=== PATIENT | female | born 1965 | race African-American/Black ===

== ENCOUNTER 2016-09-11 04:54 | Inpatient (IN) | payer OTHER ==
[~2016-09-11] VITALS: Ht 170.2 cm; Wt 116.1 kg
[~2016-09-11 04:54] MED LIST: ASPI-867 PO; ATOR10TA69 PO; Calcium Acetate PO; DEXTL PO; DOCU-138 PO; HYDR-4134 PO; LORA10TA7 PO; NEBI5TAB3 PO; NITR0.4T SL; Nifedipine PO; OMEP20TA80 PO
[2016-09-11] MEDS ORDERED: ONDANSETRON HCL 4MG/2ML VIAL IV STA (06:18)
[2016-09-11] MEDS ORDERED: SODIUM CHLORIDE 0.9% 500 ML IV ONE (06:18)
[2016-09-11] MEDS ORDERED: HYDRALAZINE 20MG/ML VIAL IV ONE (06:30)
[2016-09-11] MEDS ORDERED: TRAMADOL 50MG TABLET PO ONE (06:30)
[2016-09-11 07:22] LABS: INR 1.1; PROTHROMBIN TIME 11.7 sec
[2016-09-11 07:23] LABS: BASOPHILS % 0.8 % (0.0-2.0); EOSINOPHILS % 1.9 % (0.0-5.0); HEMATOCRIT. 29.6 % (36.0-48.0); HEMOGLOBIN. 9.5 g/dL (12.0-16.0); LYMPHOCYTES % 17.5 % (20.0-50.0); MEAN CORPUSCULAR HEMOGLOBIN 27.5 pg (28.0-32.0); MEAN CORPUSCULAR HGB CONC 32.2 g/dL (31.0-37.0); MEAN CORPUSCULAR VOLUME 85.3 fL (81.0-99.0); MEAN PLATELET VOLUME 7.8 fl (7.4-10.4); MONOCYTES % 5.2 % (2.0-8.0); NEUTROPHILS % 74.6 % (40.0-76.0); PLATELET 250 x1000/uL (130-400); RED BLOOD CELL COUNT 3.47 mill/uL (4.2-5.4); RED CELL DISTRIBUTION WIDTH 14.7 % (11.6-14.6); WHITE BLOOD COUNT 9.9 x1000/uL (4.5-11.0)
[2016-09-11 07:35] LABS: ALANINE AMINOTRANSFERASE 12 IU/L (13-61); ALBUMIN 3.1 g/dL (3.4-5.0); ANION GAP 14; CALCIUM 9.1 mg/dL (8.5-10.1); CARBON DIOXIDE 29 mEq/L (21-32); CHLORIDE 102 mEq/L (98-107); INDEX HEMOLYSI 1 (1-3); INDEX ICTERIC 1 (1-4); INDEX LIPEMIC 1 (1-3); LIPASE 114 IU/L (73-393); UREA NITROGEN BLOOD 34 mg/dL (7-21); eGFR 5 mL/min (>60)
[2016-09-11 07:37] LABS: TROPONIN I 0.45 ng/mL (0.00-0.04)
[2016-09-11] MEDS ORDERED: PIPERACILLIN/TAZ 3.375G PREMIX 50 ML IV ONE (07:45)
[2016-09-11 08:22] LABS: GLUCOSE URINE NEGATIVE (NEGATIVE); KETONES URINE NEGATIVE (NEGATIVE); LEUKOCYTE ESTERASE URINE NEGATIVE (NEGATIVE); NITRITE URINE NEGATIVE (NEGATIVE); OCCULT BLOOD URINE 2+ (NEGATIVE); PH URINE 7.5 (4.5-8.0); PROTEIN URINE 4+ (NEGATIVE); SPECIFIC GRAVITY URINE 1.018 (1.005-1.030); UROBILINOGEN URINE 0.2 E.U./dL (0.2-1.0)
[2016-09-11 08:23] LABS: CLARITY URINE CLEAR (CLEAR); COLOR URINE YELLOW (YELLOW)
[2016-09-11 08:36] LABS: BACTERIA URINE TRACE; SQUAMOUS EPITHELIAL CELL URINE 1+ /lpf (RARE/1+)
[2016-09-11] MEDS ORDERED: ASPIRIN 81MG TABLET PO ONE (08:45)
[2016-09-11] MEDS ORDERED: CLONIDINE 0.2MG TABLET PO ONE (12:00)
[2016-09-11 13:30] VITALS: BP 175/103
[2016-09-11] MEDS ORDERED: NIFEDIPINE XL 60MG TAB PO SCH (15:15)
[2016-09-11] MEDS: NEBIVOLOL HCL 5 MG TABLET PO SCH ×2 (15:15→21:00)
[2016-09-11 16:00] VITALS: BP 164/81
[2016-09-11] MEDS: NIFEDIPINE XL 60MG TAB PO SCH ×2 (16:02→21:00)
[2016-09-11] MEDS ORDERED: ONDANSETRON HCL 4MG/2ML VIAL IV PRN (16:30)
[2016-09-11] MEDS ORDERED: ACETAMINOPHEN 325MG TABLET PO PRN (16:30)
[2016-09-11] MEDS: SODIUM CHLORIDE 0.9% 1,000 ML IV SCH (16:34)
[2016-09-11] MEDS ORDERED: GUAIFENESIN PO PRN (18:00)
[2016-09-11] MEDS ORDERED: CALCIUM ACETATE PO SCH (18:10)
[2016-09-11] MEDS ORDERED: GUAIFENESIN 200MG/10ML SUGAR FREE UDC PO PRN (18:30)
[2016-09-11 20:00] VITALS: BP 155/102
[2016-09-11] MEDS ORDERED: ATORVASTATIN CALCIUM 10MG TABLET PO SCH (21:00)
[2016-09-11] MEDS: ATORVASTATIN CALCIUM 10MG TABLET PO SCH (21:07)
[2016-09-11] MEDS: HYDRALAZINE HCL 50MG TABLET PO SCH (21:07)
[2016-09-11] MEDS ORDERED: HYDRALAZINE HCL 25MG TABLET PO SCH (22:00)
[2016-09-12] VITALS: BP 165/88
[2016-09-12] MEDS ORDERED: PIPERACILLIN/TAZ 3.375G PREMIX 50 ML IV SCH (00:30)
[2016-09-12] MEDS: PIPERACILLIN/TAZ 2.25G PREMIX 50 ML IV SCH ×4 (02:08→20:41)
[2016-09-12] MEDS: SODIUM CHLORIDE 0.9% 1,000 ML IV SCH (02:08)
[2016-09-12 04:00] VITALS: BP 160/86
[2016-09-12] MEDS: HYDRALAZINE HCL 50MG TABLET PO SCH (05:44)
[2016-09-12 06:21] LABS: BASOPHILS % 1.1 % (0.0-2.0); EOSINOPHILS % 2.3 % (0.0-5.0); HEMATOCRIT. 26.8 % (36.0-48.0); HEMOGLOBIN. 8.6 g/dL (12.0-16.0); LYMPHOCYTES % 30.7 % (20.0-50.0); MEAN CORPUSCULAR HEMOGLOBIN 27.9 pg (28.0-32.0); MEAN CORPUSCULAR HGB CONC 32.2 g/dL (31.0-37.0); MEAN CORPUSCULAR VOLUME 86.6 fL (81.0-99.0); MEAN PLATELET VOLUME 8.1 fl (7.4-10.4); MONOCYTES % 5.9 % (2.0-8.0); PLATELET 221 x1000/uL (130-400); RED CELL DISTRIBUTION WIDTH 14.9 % (11.6-14.6); WHITE BLOOD COUNT 8.5 x1000/uL (4.5-11.0)
[2016-09-12 07:03] LABS: CALCIUM 8.6 mg/dL (8.5-10.1)
[2016-09-12 08:00] VITALS: BP 203/115
[2016-09-12] MEDS: PANTOPRAZOLE 40MG DR TABLET PO SCH (08:19)
[2016-09-12] MEDS: CALCIUM ACETATE 667MG CAPSULE PO SCH ×2 (08:19→14:19)
[2016-09-12] MEDS ORDERED: NEBIVOLOL HCL 5 MG TABLET PO SCH (09:00)
[2016-09-12] MEDS: NEBIVOLOL HCL 5 MG TABLET PO SCH ×2 (09:00→20:41)
[2016-09-12] MEDS ORDERED: ASPIRIN 325MG EC TABLET PO SCH (09:00)
[2016-09-12] MEDS ORDERED: MEDICATION NOT ON FORMULARY EA (Omeprazole 1 TAB) PO SCH (09:00)
[2016-09-12] MEDS: ENOXAPARIN 40MG/0.4ML SYR SUBCUT SCH (09:06)
[2016-09-12] MEDS: NIFEDIPINE XL 60MG TAB PO SCH ×2 (09:06→20:39)
[2016-09-12] MEDS: LORATADINE 10MG TABLET PO SCH (09:06)
[2016-09-12 12:00] VITALS: BP 194/106
[2016-09-12] MEDS: CLONIDINE 0.2MG TABLET PO SCH ×2 (14:18→22:13)
[2016-09-12] MEDS: ISOSORB DINIT/HYDRALAZINE HCL 20/37.5MG TABLET PO SCH (14:19)
[2016-09-12 16:00] VITALS: BP 184/86
[2016-09-12 20:00] VITALS: BP 114/70
[2016-09-12] MEDS: ATORVASTATIN CALCIUM 10MG TABLET PO SCH (20:42)
[2016-09-12] MEDS: EPOETIN ALFA 10000UNITS/ML VIAL SUBCUT SCH (20:42)
[2016-09-13] VITALS: BP 148/96
[2016-09-13] MEDS: PIPERACILLIN/TAZ 2.25G PREMIX 50 ML IV SCH ×4 (02:52→20:43)
[2016-09-13 04:00] VITALS: BP 181/99
[2016-09-13] MEDS: CLONIDINE 0.2MG TABLET PO SCH ×3 (05:18→20:44)
[2016-09-13 06:25] LABS: BASOPHILS % 0.9 % (0.0-2.0); EOSINOPHILS % 2.2 % (0.0-5.0); HEMATOCRIT. 27.5 % (36.0-48.0); HEMOGLOBIN. 8.9 g/dL (12.0-16.0); LYMPHOCYTES % 29.8 % (20.0-50.0); MEAN CORPUSCULAR HEMOGLOBIN 27.6 pg (28.0-32.0); MEAN CORPUSCULAR HGB CONC 32.3 g/dL (31.0-37.0); MEAN CORPUSCULAR VOLUME 85.7 fL (81.0-99.0); MEAN PLATELET VOLUME 7.6 fl (7.4-10.4); MONOCYTES % 5.6 % (2.0-8.0); NEUTROPHILS % 61.5 % (40.0-76.0); PLATELET 211 x1000/uL (130-400); RED BLOOD CELL COUNT 3.22 mill/uL (4.2-5.4); RED CELL DISTRIBUTION WIDTH 14.7 % (11.6-14.6); WHITE BLOOD COUNT 8.3 x1000/uL (4.5-11.0)
[2016-09-13 06:43] LABS: CALCIUM 8.5 mg/dL (8.5-10.1)
[2016-09-13 08:00] VITALS: BP 139/85
[2016-09-13] MEDS: ENOXAPARIN 40MG/0.4ML SYR SUBCUT SCH (08:13)
[2016-09-13] MEDS: PANTOPRAZOLE 40MG DR TABLET PO SCH (08:13)
[2016-09-13] MEDS: LORATADINE 10MG TABLET PO SCH (08:13)
[2016-09-13] MEDS: NIFEDIPINE XL 60MG TAB PO SCH ×2 (08:14→20:43)
[2016-09-13] MEDS: ASPIRIN 81MG TABLET PO SCH (08:14)
[2016-09-13] MEDS: NEBIVOLOL HCL 5 MG TABLET PO SCH (09:00)
[2016-09-13] MEDS: DOCUSATE SODIUM 100MG CAPSULE PO PRN (09:17)
[2016-09-13] MEDS: CALCIUM ACETATE 667MG CAPSULE PO SCH ×4 (09:39→17:19)
[2016-09-13] MEDS: ISOSORB DINIT/HYDRALAZINE HCL 20/37.5MG TABLET PO SCH ×4 (09:39→17:20)
[2016-09-13 12:00] VITALS: BP 118/77
[2016-09-13 16:00] VITALS: BP 123/79
[2016-09-13 20:00] VITALS: BP 121/79
[2016-09-13] MEDS: ATORVASTATIN CALCIUM 10MG TABLET PO SCH (20:43)
[2016-09-14] VITALS: BP_SYST 121; BP_SYST 135; BP_DIAS 79; BP_DIAS 86
[2016-09-14] MEDS: PIPERACILLIN/TAZ 2.25G PREMIX 50 ML IV SCH ×4 (01:33→20:00)
[2016-09-14 04:00] VITALS: BP 155/84
[2016-09-14] MEDS: CLONIDINE 0.2MG TABLET PO SCH (05:48)
[2016-09-14 06:28] LABS: CALCIUM 8.6 mg/dL (8.5-10.1)
[2016-09-14 06:36] LABS: BASOPHILS % 0.9 % (0.0-2.0); EOSINOPHILS % 1.8 % (0.0-5.0); HEMATOCRIT. 27.3 % (36.0-48.0); HEMOGLOBIN. 8.8 g/dL (12.0-16.0); LYMPHOCYTES % 28.3 % (20.0-50.0); MEAN CORPUSCULAR HEMOGLOBIN 27.6 pg (28.0-32.0); MEAN CORPUSCULAR HGB CONC 32.4 g/dL (31.0-37.0); MEAN CORPUSCULAR VOLUME 85.3 fL (81.0-99.0); MEAN PLATELET VOLUME 7.9 fl (7.4-10.4); MONOCYTES % 5.4 % (2.0-8.0); NEUTROPHILS % 63.6 % (40.0-76.0); PLATELET 203 x1000/uL (130-400); RED BLOOD CELL COUNT 3.19 mill/uL (4.2-5.4); WHITE BLOOD COUNT 8.2 x1000/uL (4.5-11.0)
[2016-09-14 08:00] VITALS: BP 162/86
[2016-09-14] MEDS: ENOXAPARIN 40MG/0.4ML SYR SUBCUT SCH (08:17)
[2016-09-14] MEDS: CALCIUM ACETATE 667MG CAPSULE PO SCH ×3 (08:17→18:04)
[2016-09-14] MEDS: LORATADINE 10MG TABLET PO SCH (08:17)
[2016-09-14] MEDS: ASPIRIN 81MG TABLET PO SCH (08:17)
[2016-09-14] MEDS: DOCUSATE SODIUM 100MG CAPSULE PO PRN (08:17)
[2016-09-14] MEDS: NIFEDIPINE XL 60MG TAB PO SCH ×2 (08:18→21:42)
[2016-09-14] MEDS: ISOSORB DINIT/HYDRALAZINE HCL 20/37.5MG TABLET PO SCH ×3 (08:18→17:00)
[2016-09-14] MEDS ORDERED: FAMOTIDINE 20MG TABLET PO SCH (09:00)
[2016-09-14 12:00] VITALS: BP 163/106
[2016-09-14 12:41] VITALS: BP_SYST 129; BP_SYST 135; BP_DIAS 84; BP_DIAS 88
[2016-09-14 16:00] VITALS: BP 129/88
[2016-09-14] MEDS ORDERED: CLONIDINE 0.1MG TABLET PO SCH (21:00)
[2016-09-14] MEDS ORDERED: MINOXIDIL 2.5MG TABLET PO SCH (21:00)
[2016-09-14] MEDS: ATORVASTATIN CALCIUM 10MG TABLET PO SCH (21:41)
[2016-09-14] MEDS: EPOETIN ALFA 10000UNITS/ML VIAL SUBCUT SCH (21:42)
== END 2016-09-14 22:05 | disposition home or self-care (01) | DRG 720 ==
LOC: ER 05:25 → 7WST 13:10
PROVIDERS: ADMIT Internal Medicine; ATTEND Internal Medicine
PROC: 5A1D60Z (ICD-10-PCS; principal; 2016-09-12)
DX: A41.9 Sepsis, unspecified organism (principal); I21.4 Non-ST elevation (NSTEMI) myocardial infarction; I13.2 Hypertensive heart and chronic kidney disease with heart failure and with stage 5 chronic kidney disease, or end stage renal disease; N17.9 Acute kidney failure, unspecified; N18.6 End stage renal disease; D64.9 Anemia, unspecified; N39.0 Urinary tract infection, site not specified; I25.10 Atherosclerotic heart disease of native coronary artery without angina pectoris; F10.20 Alcohol dependence, uncomplicated; K57.90 Diverticulosis of intestine, part unspecified, without perforation or abscess without bleeding; I50.30 Unspecified diastolic (congestive) heart failure; J44.9 Chronic obstructive pulmonary disease, unspecified; N13.6 Pyonephrosis; E78.5 Hyperlipidemia, unspecified; F17.210 Nicotine dependence, cigarettes, uncomplicated; Z82.49 Family history of ischemic heart disease and other diseases of the circulatory system; Z99.2 Dependence on renal dialysis; Z88.8 Allergy status to other drugs, medicaments and biological substances; Z90.49 Acquired absence of other specified parts of digestive tract
CPT/HCPCS: 36415; 71010; 74176; 80048; 80053; 81001; 83605; 83690; 84484; 85025; 85610; 85730; 87040; 87086; 93005; 96365; 96375; 97162; 97166; 99291; J0360; J0885; J1650; J2405; J2543; J7030; J7040; J7050

== ENCOUNTER 2017-04-24 07:38 | Inpatient (IN) | payer MEDICARE, OTHER ==
[~2017-04-24] VITALS: Ht 170.2 cm; Wt 113.4 kg
[~2017-04-24 07:38] MED LIST changes: +OMEP20TA2 PO; -OMEP20TA80 PO
[2017-04-24] MEDS ORDERED: HYDRALAZINE 20MG/ML VIAL IV ONE ×2 (09:00→11:15)
[2017-04-24 09:12] LABS: BASOPHILS % 1.3 % (0.0-2.0); EOSINOPHILS % 1.7 % (0.0-5.0); HEMATOCRIT. 34.6 % (36.0-48.0); HEMOGLOBIN. 11.5 g/dL (12.0-16.0); LYMPHOCYTES % 17.1 % (20.0-50.0); MEAN CORPUSCULAR HEMOGLOBIN 29.8 pg (28.0-32.0); MEAN PLATELET VOLUME 7.5 fl (7.4-10.4); NEUTROPHILS % 75.9 % (40.0-76.0); PLATELET 165 x1000/uL (130-400); RED BLOOD CELL COUNT 3.84 mill/uL (4.2-5.4); RED CELL DISTRIBUTION WIDTH 15.9 % (11.6-14.6)
[2017-04-24 09:34] LABS: CARBON DIOXIDE 31 mEq/L (21-32); CHLORIDE 103 mEq/L (98-107)
[2017-04-24 09:36] LABS: INR 1.1; PARTIAL THROMBOPLASTIN TIME 23.7 sec (23.4-31.0); PROTHROMBIN TIME 11.5 sec (9.4-11.6); TROPONIN I 0.49 ng/mL (0.00-0.04)
[2017-04-24] MEDS ORDERED: KETOROLAC 30MG/ML VIAL IV ONE ×2 (10:15→13:00)
[2017-04-24] MEDS ORDERED: CLONIDINE 0.2MG TABLET PO ONE (12:15)
[2017-04-24] MEDS ORDERED: CLONIDINE 0.2MG TABLET PO SCH (14:00)
[2017-04-24] MEDS: HYDRALAZINE HCL 100MG TABLET PO SCH ×2 (14:00→23:40)
[2017-04-24] MEDS ORDERED: NEBIVOLOL HCL 5 MG TABLET PO SCH (14:00)
[2017-04-24] MEDS ORDERED: ACETAMINOPHEN 325MG TABLET PO PRN (15:15)
[2017-04-24] MEDS ORDERED: ONDANSETRON HCL 4MG/2ML VIAL IV PRN (15:15)
[2017-04-24 15:30] VITALS: BP 136/76
[2017-04-24] MEDS: NIFEDIPINE XL 60MG TAB PO SCH ×2 (15:58→21:19)
[2017-04-24 18:23] VITALS: BP 202/93
[2017-04-24 20:00] VITALS: BP 182/78
[2017-04-24] MEDS: CLONIDINE 0.2MG TABLET PO SCH (22:00)
[2017-04-25] VITALS: BP 158/77
[2017-04-25 04:00] VITALS: BP 142/64
[2017-04-25] MEDS: CLONIDINE 0.2MG TABLET PO SCH ×2 (06:00→14:00)
[2017-04-25] MEDS: HYDRALAZINE HCL 100MG TABLET PO SCH ×2 (06:00→14:00)
[2017-04-25 07:14] LABS: BASOPHILS % 0.9 % (0.0-2.0); EOSINOPHILS % 2.8 % (0.0-5.0); HEMOGLOBIN. 11.7 g/dL (12.0-16.0); LYMPHOCYTES % 23.1 % (20.0-50.0); MEAN CORPUSCULAR HEMOGLOBIN 29.3 pg (28.0-32.0); MEAN CORPUSCULAR VOLUME 90.4 fL (81.0-99.0); MEAN PLATELET VOLUME 7.9 fl (7.4-10.4); MONOCYTES % 4.9 % (2.0-8.0); NEUTROPHILS % 68.3 % (40.0-76.0); PLATELET 165 x1000/uL (130-400); RED BLOOD CELL COUNT 3.98 mill/uL (4.2-5.4); RED CELL DISTRIBUTION WIDTH 15.6 % (11.6-14.6)
[2017-04-25 08:00] VITALS: BP 147/66
[2017-04-25] MEDS: NIFEDIPINE XL 60MG TAB PO SCH (08:50)
[2017-04-25 09:46] LABS: TROPONIN I 0.46 ng/mL (0.00-0.04)
[2017-04-25] MEDS ORDERED: SODIUM POLYSTYRENE SULFONATE 15 G/60 ML BOT PO NR (11:15)
[2017-04-25 12:00] VITALS: BP 140/69
[2017-04-25 16:00] VITALS: BP 161/85
[2017-04-25 17:49] VITALS: BP 138/74
== END 2017-04-25 20:35 | disposition left against medical advice (07) | DRG 311 ==
LOC: ER 07:38 → 7WST 10:05 → ENRESERV 10:11
PROVIDERS: ADMIT Internal Medicine; ATTEND Internal Medicine
PROC: 5A1D70Z Performance of Urinary Filtration, Intermittent, Less than 6 Hours Per Day (ICD-10-PCS; principal; 2017-04-24)
DX: I24.9 Acute ischemic heart disease, unspecified (principal); I13.2 Hypertensive heart and chronic kidney disease with heart failure and with stage 5 chronic kidney disease, or end stage renal disease; N18.6 End stage renal disease; D63.1 Anemia in chronic kidney disease; E66.9 Obesity, unspecified; I50.9 Heart failure, unspecified; J44.9 Chronic obstructive pulmonary disease, unspecified; Z53.21 Procedure and treatment not carried out due to patient leaving prior to being seen by health care provider; Z82.49 Family history of ischemic heart disease and other diseases of the circulatory system; Z99.2 Dependence on renal dialysis; Z68.39 Body mass index [BMI] 39.0-39.9, adult; Z88.8 Allergy status to other drugs, medicaments and biological substances; Z79.899 Other long term (current) drug therapy
CPT/HCPCS: 36415; 70450; 71010; 80048; 80053; 84132; 84484; 85025; 85610; 85730; 93005; 93306; 96374; 99285; J0360; J1885; J7030

== ENCOUNTER 2017-12-11 06:14 | Inpatient (IN) | payer MEDICARE, MEDICAID ==
[~2017-12-11] VITALS: Ht 170.2 cm; Wt 95.3 kg
[2017-12-11] MEDS ORDERED: ONDANSETRON HCL 4MG/2ML VIAL IV ONE (07:45)
[2017-12-11] MEDS ORDERED: SODIUM CHLORIDE 0.9% 250 ML IV ONE (07:45)
[2017-12-11 08:37] LABS: BASOPHILS % 0.8 % (0.0-2.0); EOSINOPHILS % 2.6 % (0.0-5.0); HEMATOCRIT. 35.5 % (36.0-48.0); HEMOGLOBIN. 11.5 g/dL (12.0-16.0); LYMPHOCYTES % 18.7 % (20.0-50.0); MEAN CORPUSCULAR VOLUME 89.1 fL (81.0-99.0); MEAN PLATELET VOLUME 7.7 fl (7.4-10.4); MONOCYTES % 4.8 % (2.0-8.0); NEUTROPHILS % 73.1 % (40.0-76.0); PLATELET 147 x1000/uL (130-400); RED BLOOD CELL COUNT 3.98 mill/uL (4.2-5.4); RED CELL DISTRIBUTION WIDTH 14.9 % (11.6-14.6)
[2017-12-11 08:39] LABS: CHLORIDE 102 mEq/L (98-107); INR 1.1; PROTHROMBIN TIME 11.5 sec (9.4-11.6)
[2017-12-11 12:00] VITALS: BP 191/99
[2017-12-11 13:00] VITALS: BP 191/99
[2017-12-11 16:00] VITALS: BP 180/90
[2017-12-11 16:12] LABS: ETHANOL BLOOD < 10 mg/dL
[2017-12-11 17:00] VITALS: BP 160/90
[2017-12-11 20:00] VITALS: BP 168/69
[2017-12-11] MEDS ORDERED: ASPIRIN 81MG TABLET PO SCH (21:32)
[2017-12-11] MEDS: HYDRALAZINE HCL 50MG TABLET PO SCH (22:16)
[2017-12-11] MEDS: ATORVASTATIN CALCIUM 10MG TABLET PO SCH (22:17)
[2017-12-11] MEDS: HEPARIN 5000 UNITS/ML VIAL SUBCUT SCH (22:18)
[2017-12-12] VITALS (8 sets, daily range): BP systolic 149–229; BP diastolic 54–111
[2017-12-12] MEDS: HYDRALAZINE HCL 50MG TABLET PO SCH (05:23)
[2017-12-12] MEDS: ASPIRIN 325MG EC TABLET PO SCH (08:12)
[2017-12-12] MEDS: HEPARIN 5000 UNITS/ML VIAL SUBCUT SCH ×2 (08:12→21:26)
[2017-12-12] MEDS ORDERED: HYDRALAZINE 20MG/ML VIAL IV NR (10:00)
[2017-12-12] MEDS ORDERED: ACETAMINOPHEN 325MG TABLET PO PRN (10:00)
[2017-12-12 11:14] LABS: BASOPHILS % 0.9 % (0.0-2.0); EOSINOPHILS % 3.4 % (0.0-5.0); HEMATOCRIT. 35.2 % (36.0-48.0); HEMOGLOBIN. 11.3 g/dL (12.0-16.0); LYMPHOCYTES % 25.1 % (20.0-50.0); MEAN CORPUSCULAR HEMOGLOBIN 28.9 pg (28.0-32.0); MEAN CORPUSCULAR VOLUME 89.6 fL (81.0-99.0); MEAN PLATELET VOLUME 8.4 fl (7.4-10.4); MONOCYTES % 5.8 % (2.0-8.0); NEUTROPHILS % 64.8 % (40.0-76.0); PLATELET 123 x1000/uL (130-400); RED BLOOD CELL COUNT 3.93 mill/uL (4.2-5.4); RED CELL DISTRIBUTION WIDTH 14.9 % (11.6-14.6)
[2017-12-12] MEDS: NIFEDIPINE XL 60MG TAB PO SCH ×2 (12:00→20:31)
[2017-12-12] MEDS: NEBIVOLOL HCL 5 MG TABLET PO SCH ×2 (12:00→20:31)
[2017-12-12] MEDS: HYDRALAZINE HCL 100MG TABLET PO SCH ×2 (14:08→22:11)
[2017-12-12] MEDS: ATORVASTATIN CALCIUM 10MG TABLET PO SCH (20:31)
[2017-12-12] MEDS: CLONIDINE 0.2MG TABLET PO PRN (21:26)
[2017-12-13] VITALS: BP 194/75
[2017-12-13 04:00] VITALS: BP 137/65
[2017-12-13] MEDS: HYDRALAZINE HCL 100MG TABLET PO SCH ×2 (05:08→13:38)
[2017-12-13 06:53] LABS: EOSINOPHILS % 3.6 % (0.0-5.0); HEMATOCRIT. 36.6 % (36.0-48.0); HEMOGLOBIN. 11.7 g/dL (12.0-16.0); LYMPHOCYTES % 24.7 % (20.0-50.0); MEAN CORPUSCULAR HEMOGLOBIN 28.5 pg (28.0-32.0); MEAN CORPUSCULAR VOLUME 88.8 fL (81.0-99.0); MONOCYTES % 6.2 % (2.0-8.0); NEUTROPHILS % 64.5 % (40.0-76.0); PLATELET 129 x1000/uL (130-400); RED BLOOD CELL COUNT 4.12 mill/uL (4.2-5.4); RED CELL DISTRIBUTION WIDTH 14.8 % (11.6-14.6)
[2017-12-13 07:30] VITALS: BP 161/73
[2017-12-13] MEDS: ASPIRIN 325MG EC TABLET PO SCH (08:59)
[2017-12-13] MEDS: HEPARIN 5000 UNITS/ML VIAL SUBCUT SCH ×2 (09:00→20:25)
[2017-12-13] MEDS: NEBIVOLOL HCL 5 MG TABLET PO SCH ×2 (09:00→21:00)
[2017-12-13] MEDS: NIFEDIPINE XL 60MG TAB PO SCH ×2 (09:00→21:00)
[2017-12-13] MEDS ORDERED: BISACODYL 10MG SUPP PR NR (11:15)
[2017-12-13 12:10] VITALS: BP 175/88
[2017-12-13 16:00] VITALS: BP 184/96
[2017-12-13] MEDS: CLONIDINE 0.2MG TABLET PO PRN (17:53)
[2017-12-13 20:00] VITALS: BP 148/79
[2017-12-13] MEDS ORDERED: HYDRALAZINE 20MG/ML VIAL IV PRN (20:15)
[2017-12-13] MEDS: ATORVASTATIN CALCIUM 10MG TABLET PO SCH (20:24)
[2017-12-14] VITALS: BP 192/82
[2017-12-14] MEDS: HYDRALAZINE HCL 100MG TABLET PO SCH ×4 (00:38→18:01)
[2017-12-14 04:00] VITALS: BP_SYST 137; BP_SYST 156; BP_SYST 172; BP_DIAS 74; BP_DIAS 91; BP_DIAS 95
[2017-12-14 07:10] LABS: BASOPHILS % 0.7 % (0.0-2.0); EOSINOPHILS % 2.8 % (0.0-5.0); HEMATOCRIT. 37.2 % (36.0-48.0); HEMOGLOBIN. 12.1 g/dL (12.0-16.0); LYMPHOCYTES % 23.3 % (20.0-50.0); MEAN CORPUSCULAR HEMOGLOBIN 28.8 pg (28.0-32.0); MEAN CORPUSCULAR VOLUME 88.6 fL (81.0-99.0); MEAN PLATELET VOLUME 8.7 fl (7.4-10.4); NEUTROPHILS % 68.2 % (40.0-76.0); PLATELET 129 x1000/uL (130-400); RED CELL DISTRIBUTION WIDTH 14.4 % (11.6-14.6)
[2017-12-14 08:00] VITALS: BP 172/67
[2017-12-14] MEDS ORDERED: ONDANSETRON HCL 4MG/2ML VIAL IV PRN (08:15)
[2017-12-14] MEDS: NIFEDIPINE XL 60MG TAB PO SCH ×2 (09:00→20:17)
[2017-12-14] MEDS: HEPARIN 5000 UNITS/ML VIAL SUBCUT SCH ×2 (09:00→20:19)
[2017-12-14] MEDS: NEBIVOLOL HCL 5 MG TABLET PO SCH (09:00)
[2017-12-14] MEDS: ASPIRIN 325MG EC TABLET PO SCH (09:05)
[2017-12-14 12:00] VITALS: BP 175/101
[2017-12-14 16:10] VITALS: BP 200/103
[2017-12-14 20:00] VITALS: BP 181/67
[2017-12-14] MEDS: ATORVASTATIN CALCIUM 10MG TABLET PO SCH (20:19)
[2017-12-14] MEDS: MINOXIDIL 2.5MG TABLET PO SCH (20:19)
[2017-12-15] VITALS: BP_SYST 154; BP_SYST 159; BP_SYST 162; BP_DIAS 88; BP_DIAS 90; BP_DIAS 92
[2017-12-15] MEDS: HYDRALAZINE HCL 100MG TABLET PO SCH ×4 (00:21→21:05)
[2017-12-15 04:00] VITALS: BP 172/83
[2017-12-15 06:14] LABS: BARBITURATE SCREEN Negative ug/mL (Cutoff:0.1); BENZODIAZEPINE SCREEN Negative ng/mL (Cutoff:20); OPIATES SCREEN Negative ng/mL (Cutoff:5); PHENCYCLIDINE SCREEN Negative ng/mL (Cutoff:8)
[2017-12-15 08:00] VITALS: BP_SYST 165; BP_SYST 170; BP_SYST 174; BP_DIAS 64; BP_DIAS 65; BP_DIAS 72
[2017-12-15] MEDS: MINOXIDIL 2.5MG TABLET PO SCH (08:03)
[2017-12-15] MEDS: ASPIRIN 325MG EC TABLET PO SCH (08:03)
[2017-12-15] MEDS: HEPARIN 5000 UNITS/ML VIAL SUBCUT SCH ×2 (09:00→21:06)
[2017-12-15 09:06] LABS: BASOPHILS % 1.3 % (0.0-2.0); EOSINOPHILS % 2.7 % (0.0-5.0); HEMATOCRIT. 38.3 % (36.0-48.0); HEMOGLOBIN. 12.3 g/dL (12.0-16.0); LYMPHOCYTES % 22.3 % (20.0-50.0); MEAN CORPUSCULAR HEMOGLOBIN 28.7 pg (28.0-32.0); MEAN PLATELET VOLUME 8.7 fl (7.4-10.4); MONOCYTES % 4.9 % (2.0-8.0); NEUTROPHILS % 68.8 % (40.0-76.0); PLATELET 137 x1000/uL (130-400); RED CELL DISTRIBUTION WIDTH 14.4 % (11.6-14.6)
[2017-12-15 12:00] VITALS: BP 154/79
[2017-12-15 16:00] VITALS: BP 165/73
[2017-12-15] MEDS ORDERED: SODIUM POLYSTYRENE SULFONATE 15 G/60 ML BOT PO NR (17:00)
[2017-12-15 20:00] VITALS: BP_SYST 115; BP_SYST 145; BP_SYST 176; BP_DIAS 62; BP_DIAS 72; BP_DIAS 86
[2017-12-15] MEDS ORDERED: MINOXIDIL 2.5MG TABLET PO SCH (21:00)
[2017-12-15] MEDS ORDERED: NIFEDIPINE XL 60MG TAB PO SCH (21:00)
[2017-12-15] MEDS: ATORVASTATIN CALCIUM 10MG TABLET PO SCH (21:04)
[2017-12-16] VITALS: BP_SYST 154; BP_SYST 155; BP_DIAS 52; BP_DIAS 67
[2017-12-16 04:00] VITALS: BP 148/66
[2017-12-16] MEDS: HYDRALAZINE HCL 100MG TABLET PO SCH (05:16)
[2017-12-16 06:53] LABS: BASOPHILS % 0.8 % (0.0-2.0); EOSINOPHILS % 3.5 % (0.0-5.0); HEMATOCRIT. 39.5 % (36.0-48.0); HEMOGLOBIN. 12.7 g/dL (12.0-16.0); LYMPHOCYTES % 20.9 % (20.0-50.0); MEAN CORPUSCULAR HEMOGLOBIN 28.5 pg (28.0-32.0); MEAN CORPUSCULAR VOLUME 88.8 fL (81.0-99.0); MEAN PLATELET VOLUME 8.9 fl (7.4-10.4); MONOCYTES % 5.9 % (2.0-8.0); NEUTROPHILS % 68.9 % (40.0-76.0); PLATELET 144 x1000/uL (130-400); RED BLOOD CELL COUNT 4.45 mill/uL (4.2-5.4); RED CELL DISTRIBUTION WIDTH 14.7 % (11.6-14.6)
[2017-12-16 08:00] VITALS: BP 133/64
[2017-12-16] MEDS: ASPIRIN 325MG EC TABLET PO SCH (08:47)
[2017-12-16] MEDS ORDERED: MAGNESIUM/ALUMINUM HYDROXIDE/SIMETHICONE 30ML UDC PO NR (09:15)
[2017-12-16 10:47] VITALS: BP 133/64
== END 2017-12-16 13:09 | disposition home or self-care (01) | DRG 280 ==
LOC: ER 06:14 → 8WST 09:19 → ENRESERV 10:52
PROVIDERS: ADMIT Internal Medicine; ATTEND Internal Medicine
PROC: 5A1D70Z Performance of Urinary Filtration, Intermittent, Less than 6 Hours Per Day (ICD-10-PCS; principal; 2017-12-11)
PROC: 5A1D70Z Performance of Urinary Filtration, Intermittent, Less than 6 Hours Per Day (ICD-10-PCS; 2017-12-13)
PROC: 5A1D70Z Performance of Urinary Filtration, Intermittent, Less than 6 Hours Per Day (ICD-10-PCS; 2017-12-14)
PROC: 5A1D70Z Performance of Urinary Filtration, Intermittent, Less than 6 Hours Per Day (ICD-10-PCS; 2017-12-16)
PROC: 5A09357 Assistance with Respiratory Ventilation, Less than 24 Consecutive Hours, Continuous Positive Airway Pressure (ICD-10-PCS; 2017-12-16)
DX: I21.4 Non-ST elevation (NSTEMI) myocardial infarction (principal); N18.6 End stage renal disease; I12.0 Hypertensive chronic kidney disease with stage 5 chronic kidney disease or end stage renal disease; I42.9 Cardiomyopathy, unspecified; N17.9 Acute kidney failure, unspecified; G90.8 Other disorders of autonomic nervous system; E78.00 Pure hypercholesterolemia, unspecified; K21.9 Gastro-esophageal reflux disease without esophagitis; E87.5 Hyperkalemia; D63.1 Anemia in chronic kidney disease; J44.9 Chronic obstructive pulmonary disease, unspecified; G47.33 Obstructive sleep apnea (adult) (pediatric); E78.5 Hyperlipidemia, unspecified; I25.10 Atherosclerotic heart disease of native coronary artery without angina pectoris; F17.200 Nicotine dependence, unspecified, uncomplicated; I95.3 Hypotension of hemodialysis; Z99.2 Dependence on renal dialysis; Z82.49 Family history of ischemic heart disease and other diseases of the circulatory system; Z91.19 Patient's noncompliance with other medical treatment and regimen; Z88.8 Allergy status to other drugs, medicaments and biological substances
CPT/HCPCS: 36415; 71045; 80048; 80053; 80061; 80307; 83690; 83735; 84443; 84484; 85025; 85610; 93005; 93306; 93880; 94660; 96361; 96374; 99285; G0482; J0360; J1644; J2405; J7030; J7050

== ENCOUNTER 2018-03-24 15:44 | Inpatient (IN) | payer MEDICARE, MEDICAID ==
[~2018-03-24] VITALS: Ht 170.2 cm; Wt 111.6 kg
[2018-03-24] MEDS ORDERED: MORPHINE SULFATE 4 MG/ML CPJ (NOT FOR IM USE) IV STA (16:35)
[2018-03-24] MEDS ORDERED: SODIUM CHLORIDE 0.9% 500 ML IV ONE (16:35)
[2018-03-24] MEDS ORDERED: ONDANSETRON HCL 4MG/2ML INJ IV STA (16:35)
[2018-03-24] MEDS ORDERED: FAMOTIDINE 20MG/2ML VIAL IV ONE (16:45)
[2018-03-24 17:31] LABS: BASOPHILS % 0.7 % (0.0-2.0); EOSINOPHILS % 1.2 % (0.0-5.0); HEMATOCRIT. 32.1 % (36.0-48.0); HEMOGLOBIN. 10.3 g/dL (12.0-16.0); LYMPHOCYTES % 11.4 % (20.0-50.0); MEAN CORPUSCULAR HEMOGLOBIN 29.1 pg (28.0-32.0); MEAN CORPUSCULAR VOLUME 90.3 fL (81.0-99.0); MEAN PLATELET VOLUME 8.2 fl (7.4-10.4); MONOCYTES % 8.1 % (2.0-8.0); NEUTROPHILS % 78.6 % (40.0-76.0); PLATELET 153 x1000/uL (130-400); RED BLOOD CELL COUNT 3.55 mill/uL (4.2-5.4); RED CELL DISTRIBUTION WIDTH 16.1 % (11.6-14.6)
[2018-03-24 17:41] LABS: CHLORIDE 101 mEq/L (98-107)
[2018-03-24] MEDS ORDERED: ASPIRIN 81MG TABLET PO ONE (19:00)
[2018-03-24] MEDS ORDERED: HYDRALAZINE HCL 25MG TABLET PO ONE (19:30)
[2018-03-24] MEDS ORDERED: NIFEDIPINE XL 60MG TAB PO ONE (19:30)
[2018-03-24 21:05] VITALS: BP 196/75
[2018-03-24] MEDS ORDERED: ONDANSETRON HCL 4MG/2ML INJ IV PRN (22:30)
[2018-03-24] MEDS ORDERED: ACETAMINOPHEN 500MG TABLET PO PRN (22:30)
[2018-03-24] MEDS ORDERED: ASPI-1159 PO (22:47)
[2018-03-24] MEDS ORDERED: MORPHINE SULFATE 4 MG/ML CPJ (NOT FOR IM USE) IV PRN (23:15)
[2018-03-24] MEDS ORDERED: NON FORMULARY PATIENT HOME MED EA XX SCH (23:30)
[2018-03-24] MEDS ORDERED: MEDICATION NOT ON FORMULARY EA (Docusate Sodium (Colace) 100 MG) PO PRN (23:30)
[2018-03-24] MEDS ORDERED: DOCUSATE SODIUM 100MG CAPSULE PO PRN (23:30)
[2018-03-24] MEDS: CLONIDINE 0.1MG TABLET PO PRN (23:50)
[2018-03-25] VITALS: BP 137/77
[2018-03-25 04:00] VITALS: BP 180/80
[2018-03-25] MEDS: HYDRALAZINE HCL 50MG TABLET PO SCH ×3 (05:45→21:28)
[2018-03-25] MEDS ORDERED: MEDICATION NOT ON FORMULARY EA (Hydralazine Hcl 50 MG) PO SCH (06:00)
[2018-03-25 06:13] LABS: BASOPHILS % 0.8 % (0.0-2.0); EOSINOPHILS % 2.4 % (0.0-5.0); HEMATOCRIT. 31.4 % (36.0-48.0); LYMPHOCYTES % 20.5 % (20.0-50.0); MEAN CORPUSCULAR HEMOGLOBIN 29.2 pg (28.0-32.0); MEAN CORPUSCULAR VOLUME 91.4 fL (81.0-99.0); MONOCYTES % 5.7 % (2.0-8.0); NEUTROPHILS % 70.6 % (40.0-76.0); PLATELET 150 x1000/uL (130-400); RED BLOOD CELL COUNT 3.44 mill/uL (4.2-5.4); RED CELL DISTRIBUTION WIDTH 16.1 % (11.6-14.6)
[2018-03-25 08:00] VITALS: BP 172/61
[2018-03-25] MEDS ORDERED: CALCIUM ACETATE 1334 MG PO SCH (08:10)
[2018-03-25] MEDS ORDERED: NIFEDIPINE 60 MG PO SCH (09:00)
[2018-03-25] MEDS ORDERED: MEDICATION NOT ON FORMULARY EA (Omeprazole 1 TAB) PO SCH (09:00)
[2018-03-25] MEDS: NIFEDIPINE XL 60MG TAB PO SCH ×2 (09:05→21:00)
[2018-03-25] MEDS: CLONIDINE 0.1MG TABLET PO PRN (09:05)
[2018-03-25] MEDS: CALCIUM ACETATE 667MG CAPSULE PO SCH ×2 (09:05→16:56)
[2018-03-25] MEDS: ASPIRIN 81MG TABLET PO SCH (09:05)
[2018-03-25] MEDS: OMEPRAZOLE 20MG CAPSULE EXTENDED RELEASE PO SCH (09:05)
[2018-03-25] MEDS: LORATADINE 10MG TABLET PO SCH (09:05)
[2018-03-25 12:00] VITALS: BP 137/59
[2018-03-25 16:00] VITALS: BP 135/56
[2018-03-25] MEDS ORDERED: LEVOFLOXACIN 500MG PREMIX 100 ML IV NR (16:30)
[2018-03-25] MEDS: CARVEDILOL 6.25 MG TABLET PO SCH ×2 (16:56→21:00)
[2018-03-25 20:00] VITALS: BP 142/66
[2018-03-25] MEDS ORDERED: ATORVASTATIN CALCIUM 10MG TABLET PO SCH (21:00)
[2018-03-26] VITALS: BP 153/55
[2018-03-26 04:00] VITALS: BP 168/71
[2018-03-26] MEDS: HYDRALAZINE HCL 50MG TABLET PO SCH (04:55)
[2018-03-26 06:37] LABS: BASOPHILS % 0.8 % (0.0-2.0); EOSINOPHILS % 2.7 % (0.0-5.0); HEMATOCRIT. 29.2 % (36.0-48.0); HEMOGLOBIN. 9.6 g/dL (12.0-16.0); LYMPHOCYTES % 16.6 % (20.0-50.0); MEAN CORPUSCULAR HEMOGLOBIN 29.7 pg (28.0-32.0); MEAN CORPUSCULAR VOLUME 90.9 fL (81.0-99.0); MEAN PLATELET VOLUME 8.1 fl (7.4-10.4); MONOCYTES % 8.2 % (2.0-8.0); NEUTROPHILS % 71.7 % (40.0-76.0); PLATELET 119 x1000/uL (130-400); RED BLOOD CELL COUNT 3.21 mill/uL (4.2-5.4); RED CELL DISTRIBUTION WIDTH 16.1 % (11.6-14.6)
[2018-03-26 08:00] VITALS: BP 177/70
[2018-03-26] MEDS: NIFEDIPINE XL 60MG TAB PO SCH (08:18)
[2018-03-26] MEDS: ASPIRIN 81MG TABLET PO SCH (08:18)
[2018-03-26] MEDS: CLONIDINE 0.1MG TABLET PO PRN (08:18)
[2018-03-26] MEDS: CALCIUM ACETATE 667MG CAPSULE PO SCH ×2 (08:19→08:20)
[2018-03-26] MEDS: CARVEDILOL 6.25 MG TABLET PO SCH (08:19)
[2018-03-26] MEDS: LORATADINE 10MG TABLET PO SCH (08:19)
[2018-03-26] MEDS: OMEPRAZOLE 20MG CAPSULE EXTENDED RELEASE PO SCH (08:25)
[2018-03-26 10:47] VITALS: BP 147/65
[2018-03-27] MEDS ORDERED: LEVOFLOXACIN 250MG PREMIX 50 ML IV SCH (17:00)
== END 2018-03-26 11:35 | disposition home or self-care (01) | DRG 280 ==
LOC: ER 16:19 → 7WST 18:52 → EDBEDREQ 18:55 → ENRESERV 20:04
PROVIDERS: ADMIT Family Medicine Adult Medicine; ATTEND Family Medicine Adult Medicine
PROC: 5A1D70Z Performance of Urinary Filtration, Intermittent, Less than 6 Hours Per Day (ICD-10-PCS; principal; 2018-03-24)
PROC: 5A1D70Z Performance of Urinary Filtration, Intermittent, Less than 6 Hours Per Day (ICD-10-PCS; 2018-03-25)
DX: I21.4 Non-ST elevation (NSTEMI) myocardial infarction (principal); J96.00 Acute respiratory failure, unspecified whether with hypoxia or hypercapnia; N18.6 End stage renal disease; I50.23 Acute on chronic systolic (congestive) heart failure; J96.20 Acute and chronic respiratory failure, unspecified whether with hypoxia or hypercapnia; I13.2 Hypertensive heart and chronic kidney disease with heart failure and with stage 5 chronic kidney disease, or end stage renal disease; I42.9 Cardiomyopathy, unspecified; I16.0 Hypertensive urgency; E78.5 Hyperlipidemia, unspecified; D63.8 Anemia in other chronic diseases classified elsewhere; A08.4 Viral intestinal infection, unspecified; E66.9 Obesity, unspecified; D63.1 Anemia in chronic kidney disease; G47.33 Obstructive sleep apnea (adult) (pediatric); K21.9 Gastro-esophageal reflux disease without esophagitis; K59.00 Constipation, unspecified; R74.8 Abnormal levels of other serum enzymes; E87.5 Hyperkalemia; I25.10 Atherosclerotic heart disease of native coronary artery without angina pectoris; J44.9 Chronic obstructive pulmonary disease, unspecified; Z82.49 Family history of ischemic heart disease and other diseases of the circulatory system; Z99.2 Dependence on renal dialysis; Z91.19 Patient's noncompliance with other medical treatment and regimen; Z88.8 Allergy status to other drugs, medicaments and biological substances; Z79.899 Other long term (current) drug therapy; Z68.38 Body mass index [BMI] 38.0-38.9, adult; Z71.89 Other specified counseling
CPT/HCPCS: 36415; 71045; 80048; 80053; 83690; 83880; 84145; 84484; 85025; 87040; 93005; 93970; 96361; 96374; 96375; 99285; J1956; J2270; J2405; J3490; J7030; J7040; J7050

== ENCOUNTER 2018-04-13 15:21 | Inpatient (IN) | payer MEDICARE, MEDICAID ==
[~2018-04-13] VITALS: Ht 170.2 cm; Wt 49.9 kg
[~2018-04-13 15:21] MED LIST changes: +ASPI-1159 PO; -ASPI-867 PO; -DEXTL PO; -NITR0.4T SL
[2018-04-13] MEDS ORDERED: ONDANSETRON HCL 4MG/2ML INJ IV STA (16:19)
[2018-04-13] MEDS ORDERED: HYDRALAZINE 20MG/ML VIAL IV ONE (16:30)
[2018-04-13 17:16] LABS: BASOPHILS % 0.9 % (0.0-2.0); EOSINOPHILS % 0.8 % (0.0-5.0); HEMATOCRIT. 37.7 % (36.0-48.0); HEMOGLOBIN. 12.1 g/dL (12.0-16.0); LYMPHOCYTES % 9.1 % (20.0-50.0); MEAN CORPUSCULAR VOLUME 90.2 fL (81.0-99.0); MEAN PLATELET VOLUME 7.8 fl (7.4-10.4); NEUTROPHILS % 83.2 % (40.0-76.0); PLATELET 184 x1000/uL (130-400); RED BLOOD CELL COUNT 4.18 mill/uL (4.2-5.4); RED CELL DISTRIBUTION WIDTH 16.1 % (11.6-14.6)
[2018-04-13 17:19] LABS: CHLORIDE 97 mEq/L (98-107)
[2018-04-13] MEDS ORDERED: ASPIRIN 325MG EC TABLET PO ONE (18:00)
[2018-04-13] MEDS ORDERED: ACETAMINOPHEN 325MG TABLET PO PRN (21:00)
[2018-04-13] MEDS ORDERED: GUAIFENESIN 200MG/10ML SUGAR FREE UDC PO PRN (21:00)
[2018-04-13] MEDS ORDERED: HYDROCODONE/ACETAMINOPHEN 10/325MG TABLET PO PRN (21:00)
[2018-04-13] MEDS ORDERED: DIPHENHYDRAMINE 50MG/ML VIAL IV PRN (21:00)
[2018-04-13] MEDS ORDERED: DOCUSATE SODIUM 100MG CAPSULE PO PRN (21:00)
[2018-04-13] MEDS ORDERED: NA PHOS,M-B/NA PHOS,DI-BA ENEMA 118ML PR PRN (21:00)
[2018-04-13] MEDS ORDERED: IPRATROPIUM/ALBUTEROL 0.5-3(2.5)MG/3ML NEB INH PRN (21:00)
[2018-04-13] MEDS ORDERED: LORAZEPAM 2MG/ML CPJ IV PRN (21:00)
[2018-04-13] MEDS ORDERED: MORPHINE SULFATE 4 MG/ML CPJ (NOT FOR IM USE) IV PRN (21:00)
[2018-04-13 22:00] VITALS: BP 212/99
[2018-04-13 22:15] VITALS: BP 212/99
[2018-04-13] MEDS: ONDANSETRON HCL 4MG/2ML INJ IV PRN (23:42)
[2018-04-13] MEDS: CLONIDINE 0.1MG TABLET PO PRN (23:42)
[2018-04-14] VITALS (8 sets, daily range): BP systolic 148–216; BP diastolic 63–86
[2018-04-14] MEDS ORDERED: HYDRALAZINE 20MG/ML VIAL IV PRN ×2 (00:30→07:15)
[2018-04-14] MEDS ORDERED: HYDRALAZINE 10 MG in SODIUM CHLORIDE 0.9% 49.5 ML IV PRN (00:30)
[2018-04-14] MEDS: ONDANSETRON HCL 4MG/2ML INJ IV PRN ×2 (05:16→21:00)
[2018-04-14] MEDS: MAGNESIUM/ALUMINUM HYDROXIDE/SIMETHICONE 30ML UDC PO PRN ×2 (05:16→21:00)
[2018-04-14] MEDS: CLONIDINE 0.1MG TABLET PO PRN (05:16)
[2018-04-14 08:02] LABS: BASOPHILS % 1.1 % (0.0-2.0); EOSINOPHILS % 1.8 % (0.0-5.0); LYMPHOCYTES % 11.9 % (20.0-50.0); MEAN CORPUSCULAR HEMOGLOBIN 29.4 pg (28.0-32.0); MEAN CORPUSCULAR VOLUME 90.7 fL (81.0-99.0); MEAN PLATELET VOLUME 8.1 fl (7.4-10.4); NEUTROPHILS % 80.2 % (40.0-76.0); PLATELET 182 x1000/uL (130-400); RED BLOOD CELL COUNT 4.09 mill/uL (4.2-5.4); RED CELL DISTRIBUTION WIDTH 16.5 % (11.6-14.6)
[2018-04-14] MEDS: ASPIRIN 81MG EC TABLET PO SCH (08:28)
[2018-04-14] MEDS: ENOXAPARIN 30MG/0.3ML SYR SUBCUT SCH (08:29)
[2018-04-14 08:57] LABS: CHLORIDE 95 mEq/L (98-107)
[2018-04-14 09:16] LABS: HDL CHOLESTEROL 46 mg/dL (40-59); LDL CHOLESTEROL 65 mg/dL (5-100); T4 FREE 1.46 ng/dL (0.76-1.46)
[2018-04-14] MEDS: NEBIVOLOL HCL 5 MG TABLET PO SCH (11:45)
[2018-04-14] MEDS: AMLODIPINE 5MG TABLET PO SCH ×2 (12:13→20:22)
[2018-04-14] MEDS ORDERED: PANTOPRAZOLE 40MG DR TABLET PO NR (18:00)
[2018-04-15] VITALS: BP 199/78
[2018-04-15] MEDS: HYDRALAZINE 20MG/ML VIAL IV PRN ×2 (00:17→06:10)
[2018-04-15 04:00] VITALS: BP 193/76
[2018-04-15 06:51] LABS: EOSINOPHILS % 2.5 % (0.0-5.0); HEMATOCRIT. 37.7 % (36.0-48.0); HEMOGLOBIN. 12.3 g/dL (12.0-16.0); LYMPHOCYTES % 13.7 % (20.0-50.0); MEAN CORPUSCULAR HEMOGLOBIN 29.4 pg (28.0-32.0); MEAN CORPUSCULAR VOLUME 90.1 fL (81.0-99.0); MONOCYTES % 4.7 % (2.0-8.0); NEUTROPHILS % 78.1 % (40.0-76.0); PLATELET 171 x1000/uL (130-400); RED BLOOD CELL COUNT 4.18 mill/uL (4.2-5.4)
[2018-04-15] MEDS ORDERED: PANTOPRAZOLE 40MG DR TABLET PO SCH (07:20)
[2018-04-15 08:00] VITALS: BP 184/100
[2018-04-15] MEDS: ENOXAPARIN 30MG/0.3ML SYR SUBCUT SCH (09:10)
[2018-04-15] MEDS: AMLODIPINE 5MG TABLET PO SCH (09:12)
[2018-04-15] MEDS: NEBIVOLOL HCL 5 MG TABLET PO SCH (09:12)
[2018-04-15] MEDS: ASPIRIN 81MG EC TABLET PO SCH (09:12)
[2018-04-15] MEDS: METOCLOPRAMIDE HCL 10MG/2ML VIAL IV SCH ×2 (09:55→15:49)
[2018-04-15 12:00] VITALS: BP 155/72
[2018-04-15] MEDS ORDERED: HYDRALAZINE HCL 50MG TABLET PO SCH (14:00)
[2018-04-15 15:12] VITALS: BP 155/72
== END 2018-04-15 16:29 | disposition home or self-care (01) | DRG 189 ==
LOC: ER 15:21 → 6WST 17:48 → EDBEDREQ 17:58 → ENRESERV 20:14
PROVIDERS: ADMIT Internal Medicine; ATTEND Internal Medicine
PROC: 5A1D70Z Performance of Urinary Filtration, Intermittent, Less than 6 Hours Per Day (ICD-10-PCS; principal; 2018-04-14)
DX: J96.00 Acute respiratory failure, unspecified whether with hypoxia or hypercapnia (principal); N18.6 End stage renal disease; I13.2 Hypertensive heart and chronic kidney disease with heart failure and with stage 5 chronic kidney disease, or end stage renal disease; E46 Unspecified protein-calorie malnutrition; Z68.1 Body mass index [BMI] 19.9 or less, adult; I42.9 Cardiomyopathy, unspecified; E87.70 Fluid overload, unspecified; Z99.2 Dependence on renal dialysis; I50.9 Heart failure, unspecified; J44.9 Chronic obstructive pulmonary disease, unspecified; E87.5 Hyperkalemia; D63.8 Anemia in other chronic diseases classified elsewhere; R74.8 Abnormal levels of other serum enzymes; F17.210 Nicotine dependence, cigarettes, uncomplicated; Z79.899 Other long term (current) drug therapy; Z88.8 Allergy status to other drugs, medicaments and biological substances; Z79.82 Long term (current) use of aspirin
CPT/HCPCS: 36415; 71045; 80048; 80053; 80061; 82550; 82553; 83690; 83735; 83880; 84439; 84443; 84484; 85025; 93005; 93970; 96374; 96375; 99291; C1893; J0360; J1650; J2060; J2405; J2765; J7030; J7050

== ENCOUNTER 2018-07-04 22:51 | Inpatient (IN) | payer MEDICARE, MEDICAID ==
[~2018-07-04] VITALS: Ht 170.2 cm; Wt 105.8 kg
[2018-07-05] MEDS ORDERED: ALBUTEROL (0.083%) 2.5MG/3ML NEB HHN STA (00:21)
[2018-07-05] MEDS ORDERED: IPRATROPIUM BROMIDE (0.02%) 0.5MG/2.5ML NEB HHN STA (00:21)
[2018-07-05] MEDS ORDERED: ONDANSETRON HCL 4MG/2ML INJ IV STA (00:21)
[2018-07-05] MEDS ORDERED: METHYLPREDNISOLONE SOD SUCC 125 MG/2 ML VIAL IV STA (00:21)
[2018-07-05] MEDS ORDERED: PIPERACILLIN/TAZ 3.375G PREMIX 50 ML IV ONE (00:30)
[2018-07-05] MEDS ORDERED: LABETALOL HCL 20MG/4ML CARPUJECT IV ONE (00:30)
[2018-07-05] MEDS ORDERED: VANCOMYCIN 1 G PREMIX 200 ML IV ONE (00:30)
[2018-07-05 00:53] LABS: BG BASE EXCESS 4.3 mmol/L (-2.0-2.0); BG CARBOXYHEMOGLOBIN 1.6 % (0.5-1.5); BG DEOXYHEMOGLOBIN 7.9 % (0.0-5.0); BG FRACTION INSPIRED OXYGEN 40; BG HCO3 ACT 31.5 mmol/L (22.0-26.0); BG METHEMOGLOBIN 0.3 % (0.0-1.5); BG OXYGEN SATURATION 91.9 % (92.0-98.5); BG OXYHEMOGLOBIN 90.2 % (94.0-97.0); BG PCO2 60.1 mmHg (35.0-45.0); BG PH 7.337 (7.350-7.450); BG PO2 67.4 mmHg (75.0-100.0); BG SAMPLE SITE RIGHT RADIAL; BG TOTAL HEMOGLOBIN 11.7 g/dL (12.0-18.0); BG VENT MODE MASK - SIMPLE
[2018-07-05 01:23] LABS: BASOPHILS % 0.9 % (0.0-2.0); EOSINOPHILS % 2.4 % (0.0-5.0); HEMOGLOBIN. 10.5 g/dL (12.0-16.0); LYMPHOCYTES % 13.4 % (20.0-50.0); MEAN CORPUSCULAR HEMOGLOBIN 28.3 pg (28.0-32.0); MEAN CORPUSCULAR VOLUME 89.1 fL (81.0-99.0); MEAN PLATELET VOLUME 8.8 fl (7.4-10.4); MONOCYTES % 5.3 % (2.0-8.0); PLATELET 114 x1000/uL (130-400)
[2018-07-05 01:35] LABS: CHLORIDE 101 mEq/L (98-107)
[2018-07-05] MEDS ORDERED: HYDRALAZINE 20MG/ML VIAL IV ONE (04:15)
[2018-07-05] MEDS ORDERED: TRAMADOL 50MG TABLET PO PRN (08:30)
[2018-07-05] MEDS ORDERED: ENOXAPARIN 40MG/0.4ML SYR SUBCUT SCH (08:30)
[2018-07-05] MEDS ORDERED: ZOLPIDEM TARTRATE 5MG TABLET PO PRN ×2 (08:30→21:00)
[2018-07-05] MEDS ORDERED: NITROGLYCERIN 0.4MG TABLET SL SL PRN (08:30)
[2018-07-05] MEDS ORDERED: LORAZEPAM 0.5MG TABLET PO PRN (08:30)
[2018-07-05] MEDS ORDERED: DOCUSATE SODIUM 100MG CAPSULE PO PRN (08:30)
[2018-07-05] MEDS ORDERED: IPRATROPIUM/ALBUTEROL 0.5-3(2.5)MG/3ML NEB INH PRN (08:30)
[2018-07-05] MEDS ORDERED: MAGNESIUM/ALUMINUM HYDROXIDE/SIMETHICONE 30ML UDC PO PRN (08:30)
[2018-07-05] MEDS ORDERED: ACETAMINOPHEN 325MG TABLET PO PRN (08:30)
[2018-07-05] MEDS ORDERED: DIPHENHYDRAMINE 50MG/ML VIAL IV PRN (08:30)
[2018-07-05] MEDS ORDERED: ONDANSETRON HCL 4MG/2ML INJ IV PRN (08:30)
[2018-07-05] MEDS ORDERED: CLONIDINE 0.1MG TABLET PO PRN (08:30)
[2018-07-05] MEDS ORDERED: HYDRALAZINE HCL 50MG TABLET PO NR (08:45)
[2018-07-05] MEDS ORDERED: NEBIVOLOL HCL 5 MG TABLET PO SCH ×2 (09:00→11:00)
[2018-07-05] MEDS ORDERED: ASPIRIN 325MG EC TABLET PO SCH ×2 (09:00→11:00)
[2018-07-05] MEDS ORDERED: METOPROLOL TARTRATE 25MG TABLET PO SCH ×2 (09:00→11:00)
[2018-07-05] MEDS ORDERED: SEVELAMER CARBONATE 800 MG TABLET PO SCH (09:00)
[2018-07-05] MEDS ORDERED: FOLIC ACID/VITAMIN B COMP W-C TABLET PO SCH (09:00)
[2018-07-05] MEDS ORDERED: FAMOTIDINE 20MG TABLET PO SCH (09:00)
[2018-07-05 10:30] VITALS: BP 173/90
[2018-07-05 11:00] VITALS: BP 173/90
[2018-07-05] MEDS: SEVELAMER CARBONATE 800 MG TABLET PO SCH ×3 (12:03→18:36)
[2018-07-05] MEDS: FAMOTIDINE 20MG TABLET PO SCH (12:03)
[2018-07-05] MEDS: FOLIC ACID/VITAMIN B COMP W-C TABLET PO SCH (12:03)
[2018-07-05] MEDS: ENOXAPARIN 40MG/0.4ML SYR SUBCUT SCH (12:10)
[2018-07-05 12:29] VITALS: BP 173/90
[2018-07-05] MEDS ORDERED: HYDRALAZINE HCL 50MG TABLET PO SCH ×2 (14:00)
[2018-07-05 16:00] VITALS: BP 182/82
[2018-07-05] MEDS ORDERED: CLONIDINE 0.2MG TABLET PO PRN (19:00)
[2018-07-05 20:00] VITALS: BP 134/55
[2018-07-05] MEDS ORDERED: LEVOFLOXACIN 500MG PREMIX 100 ML IV SCH (21:00)
[2018-07-05] MEDS: CARVEDILOL 6.25 MG TABLET PO SCH (21:00)
[2018-07-05] MEDS: NIFEDIPINE XL 60MG TAB PO SCH (21:00)
[2018-07-05] MEDS: METHYLPREDNISOLONE SOD SUCC 125 MG/2 ML VIAL IV SCH (21:45)
[2018-07-05] MEDS: GUAIFENESIN 600MG ER TABLET PO SCH (21:46)
[2018-07-05] MEDS: HYDRALAZINE HCL 50MG TABLET PO SCH (21:46)
[2018-07-05] MEDS: ATORVASTATIN CALCIUM 10MG TABLET PO SCH (21:47)
[2018-07-06] VITALS: BP 148/59
[2018-07-06] MEDS: IPRATROPIUM/ALBUTEROL 0.5-3(2.5)MG/3ML NEB HHN SCH ×4 (01:27→21:03)
[2018-07-06 04:00] VITALS: BP 191/92
[2018-07-06] MEDS: METHYLPREDNISOLONE SOD SUCC 125 MG/2 ML VIAL IV SCH ×2 (05:55→14:02)
[2018-07-06] MEDS: HYDRALAZINE HCL 50MG TABLET PO SCH ×3 (05:55→20:37)
[2018-07-06 08:00] VITALS: BP 152/68
[2018-07-06 08:04] LABS: BASOPHILS % 0.2 % (0.0-2.0); HEMATOCRIT. 32.6 % (36.0-48.0); HEMOGLOBIN. 10.2 g/dL (12.0-16.0); LYMPHOCYTES % 11.1 % (20.0-50.0); MEAN CORPUSCULAR HEMOGLOBIN 28.3 pg (28.0-32.0); MEAN CORPUSCULAR VOLUME 90.3 fL (81.0-99.0); MEAN PLATELET VOLUME 9.3 fl (7.4-10.4); MONOCYTES % 2.6 % (2.0-8.0); NEUTROPHILS % 86.1 % (40.0-76.0); PLATELET 121 x1000/uL (130-400); RED BLOOD CELL COUNT 3.61 mill/uL (4.2-5.4); RED CELL DISTRIBUTION WIDTH 16.1 % (11.6-14.6)
[2018-07-06] MEDS: CARVEDILOL 6.25 MG TABLET PO SCH (09:00)
[2018-07-06] MEDS: NIFEDIPINE XL 60MG TAB PO SCH ×2 (09:00→20:37)
[2018-07-06] MEDS: SEVELAMER CARBONATE 800 MG TABLET PO SCH ×3 (09:07→20:36)
[2018-07-06] MEDS: GUAIFENESIN 200MG/10ML SUGAR FREE UDC PO PRN ×2 (09:07→22:23)
[2018-07-06] MEDS: FOLIC ACID/VITAMIN B COMP W-C TABLET PO SCH (09:08)
[2018-07-06] MEDS: ENOXAPARIN 40MG/0.4ML SYR SUBCUT SCH (09:08)
[2018-07-06] MEDS: ASPIRIN 81MG EC TABLET PO SCH (09:08)
[2018-07-06] MEDS: FAMOTIDINE 20MG TABLET PO SCH (09:08)
[2018-07-06] MEDS: GUAIFENESIN 600MG ER TABLET PO SCH ×2 (09:12→20:37)
[2018-07-06 12:00] VITALS: BP 128/71
[2018-07-06 16:00] VITALS: BP 159/66
[2018-07-06] MEDS: PREDNISONE 20MG TABLET PO SCH (18:00)
[2018-07-06] MEDS ORDERED: IPRATROPIUM/ALBUTEROL 0.5-3(2.5)MG/3ML NEB HHN SCH (18:00)
[2018-07-06 20:00] VITALS: BP 151/62
[2018-07-06] MEDS: ATORVASTATIN CALCIUM 10MG TABLET PO SCH (20:36)
[2018-07-06] MEDS: CARVEDILOL 3.125 MG TABLET PO SCH (20:37)
[2018-07-06] MEDS: BUDESONIDE 0.5MG/2ML NEB HHN SCH (21:03)
[2018-07-07 00:10] VITALS: BP 165/81
[2018-07-07] MEDS: IPRATROPIUM/ALBUTEROL 0.5-3(2.5)MG/3ML NEB HHN SCH ×4 (01:46→20:35)
[2018-07-07 04:00] VITALS: BP 175/78
[2018-07-07] MEDS: HYDRALAZINE HCL 50MG TABLET PO SCH ×3 (06:18→21:04)
[2018-07-07 07:07] LABS: HEMATOCRIT. 33.9 % (36.0-48.0); HEMOGLOBIN. 10.7 g/dL (12.0-16.0); MEAN CORPUSCULAR HEMOGLOBIN 28.4 pg (28.0-32.0); MEAN PLATELET VOLUME 9.6 fl (7.4-10.4); PLATELET 164 x1000/uL (130-400); RED BLOOD CELL COUNT 3.77 mill/uL (4.2-5.4); RED CELL DISTRIBUTION WIDTH 16.4 % (11.6-14.6)
[2018-07-07 07:39] VITALS: BP 147/57
[2018-07-07] MEDS: NIFEDIPINE XL 60MG TAB PO SCH ×2 (09:00→21:04)
[2018-07-07] MEDS: BUDESONIDE 0.5MG/2ML NEB HHN SCH ×2 (09:24→20:35)
[2018-07-07] MEDS: CARVEDILOL 3.125 MG TABLET PO SCH ×2 (09:39→21:04)
[2018-07-07] MEDS: PREDNISONE 20MG TABLET PO SCH ×2 (09:39→17:23)
[2018-07-07] MEDS: FOLIC ACID/VITAMIN B COMP W-C TABLET PO SCH (09:39)
[2018-07-07] MEDS: ASPIRIN 81MG EC TABLET PO SCH (09:39)
[2018-07-07] MEDS: FAMOTIDINE 20MG TABLET PO SCH (09:39)
[2018-07-07] MEDS: SEVELAMER CARBONATE 800 MG TABLET PO SCH ×3 (09:43→19:06)
[2018-07-07] MEDS: GUAIFENESIN 600MG ER TABLET PO SCH ×2 (09:43→21:03)
[2018-07-07] MEDS: ENOXAPARIN 40MG/0.4ML SYR SUBCUT SCH (09:43)
[2018-07-07 12:20] VITALS: BP 140/71
[2018-07-07 15:26] LABS: PLATELET ESTIMATE NORMAL
[2018-07-07 16:10] VITALS: BP 147/54
[2018-07-07 20:00] VITALS: BP 166/71
[2018-07-07] MEDS ORDERED: LEVOFLOXACIN 500MG TABLET PO SCH (21:00)
[2018-07-07] MEDS: ATORVASTATIN CALCIUM 10MG TABLET PO SCH (21:03)
[2018-07-08] VITALS: BP 156/61
[2018-07-08] MEDS: IPRATROPIUM/ALBUTEROL 0.5-3(2.5)MG/3ML NEB HHN SCH (02:57)
[2018-07-08 04:00] VITALS: BP 138/54
[2018-07-08] MEDS: HYDRALAZINE HCL 50MG TABLET PO SCH (06:12)
[2018-07-08 08:10] LABS: BASOPHILS % 0.2 % (0.0-2.0); HEMATOCRIT. 34.2 % (36.0-48.0); HEMOGLOBIN. 10.7 g/dL (12.0-16.0); LYMPHOCYTES % 7.8 % (20.0-50.0); MEAN CORPUSCULAR HEMOGLOBIN 28.1 pg (28.0-32.0); MEAN CORPUSCULAR VOLUME 89.3 fL (81.0-99.0); MEAN PLATELET VOLUME 9.3 fl (7.4-10.4); MONOCYTES % 3.5 % (2.0-8.0); NEUTROPHILS % 88.5 % (40.0-76.0); PLATELET 170 x1000/uL (130-400); RED BLOOD CELL COUNT 3.82 mill/uL (4.2-5.4); RED CELL DISTRIBUTION WIDTH 16.7 % (11.6-14.6)
[2018-07-08 08:24] VITALS: BP 169/75
[2018-07-08] MEDS: GUAIFENESIN 600MG ER TABLET PO SCH (08:56)
[2018-07-08] MEDS: ASPIRIN 81MG EC TABLET PO SCH (08:56)
[2018-07-08] MEDS: FOLIC ACID/VITAMIN B COMP W-C TABLET PO SCH (08:56)
[2018-07-08] MEDS: SEVELAMER CARBONATE 800 MG TABLET PO SCH (08:56)
[2018-07-08] MEDS: FAMOTIDINE 20MG TABLET PO SCH (08:56)
[2018-07-08] MEDS: PREDNISONE 20MG TABLET PO SCH (08:56)
[2018-07-08] MEDS: NIFEDIPINE XL 60MG TAB PO SCH ×2 (09:00→11:46)
[2018-07-08] MEDS: CARVEDILOL 3.125 MG TABLET PO SCH (09:04)
[2018-07-08] MEDS: ENOXAPARIN 40MG/0.4ML SYR SUBCUT SCH (09:05)
[2018-07-08 10:49] VITALS: BP 157/77
== END 2018-07-08 12:05 | disposition home health service (06) | DRG 280 ==
LOC: ER 23:45 → 7WST 07-05 05:41 → EDBEDREQTM 07-05 05:45 → EDBEDREQ 07-05 05:45 → ENRESERV 07-05 07:51 → SUPCPDRO 07-05 08:22 → ER 07-05 09:45
PROVIDERS: ADMIT Internal Medicine; ATTEND Internal Medicine
PROC: 5A1D70Z Performance of Urinary Filtration, Intermittent, Less than 6 Hours Per Day (ICD-10-PCS; principal; 2018-07-05)
DX: I21.4 Non-ST elevation (NSTEMI) myocardial infarction (principal); I50.43 Acute on chronic combined systolic (congestive) and diastolic (congestive) heart failure; J18.9 Pneumonia, unspecified organism; J96.02 Acute respiratory failure with hypercapnia; N18.6 End stage renal disease; J96.01 Acute respiratory failure with hypoxia; I13.2 Hypertensive heart and chronic kidney disease with heart failure and with stage 5 chronic kidney disease, or end stage renal disease; J44.1 Chronic obstructive pulmonary disease with (acute) exacerbation; J44.0 Chronic obstructive pulmonary disease with (acute) lower respiratory infection; E44.1 Mild protein-calorie malnutrition; I42.0 Dilated cardiomyopathy; G47.33 Obstructive sleep apnea (adult) (pediatric); E11.22 Type 2 diabetes mellitus with diabetic chronic kidney disease; D63.1 Anemia in chronic kidney disease; E78.00 Pure hypercholesterolemia, unspecified; E78.5 Hyperlipidemia, unspecified; F17.210 Nicotine dependence, cigarettes, uncomplicated; Z82.49 Family history of ischemic heart disease and other diseases of the circulatory system; Z99.2 Dependence on renal dialysis; Z68.36 Body mass index [BMI] 36.0-36.9, adult; Z71.6 Tobacco abuse counseling
CPT/HCPCS: 36415; 36600; 71045; 80048; 80061; 82375; 82805; 83036; 83605; 83735; 83880; 84145; 84484; 87804; 93005; 93306; 93970; 94640; 96374; 96375; 97162; 97166; 97535; 99291; C1893; J0360; J1650; J1956; J2405; J2543; J2930; J3370; J3490; J7050; J7512; J7611; J7620; J7626

== ENCOUNTER 2018-07-15 10:07 | Inpatient (IN) | payer MEDICARE, MEDICAID ==
[2018-07-15] VITALS (15 sets, daily range): BP systolic 216–242; BP diastolic 92–115
[~2018-07-15] VITALS: Ht 170.2 cm; Wt 99.8 kg
[2018-07-15] MEDS: HYDRALAZINE 20MG/ML VIAL IV ONE ×2 (11:45→12:16)
[2018-07-15 13:07] LABS: CHLORIDE 105 mEq/L (98-107)
[2018-07-15 13:11] LABS: INR 1.1; PROTHROMBIN TIME 11.4 sec (9.1-11.1)
[2018-07-15] MEDS ORDERED: CEFAZOLIN 1000MG PREMIX 50 ML IV ONE (13:15)
[2018-07-15 13:16] LABS: BASOPHILS % 0.5 % (0.0-2.0); EOSINOPHILS % 3.3 % (0.0-5.0); HEMATOCRIT. 34.1 % (36.0-48.0); HEMOGLOBIN. 10.8 g/dL (12.0-16.0); MEAN CORPUSCULAR HEMOGLOBIN 28.4 pg (28.0-32.0); MEAN CORPUSCULAR VOLUME 89.7 fL (81.0-99.0); MEAN PLATELET VOLUME 8.3 fl (7.4-10.4); MONOCYTES % 7.5 % (2.0-8.0); NEUTROPHILS % 74.7 % (40.0-76.0); PLATELET 136 x1000/uL (130-400); RED CELL DISTRIBUTION WIDTH 17.4 % (11.6-14.6)
[2018-07-15] MEDS ORDERED: LIDOCAINE HCL 1% 20ML VIAL (Pyxis) INJ ONE (13:20)
[2018-07-15] MEDS ORDERED: HEPARIN 1000 UNITS/ML 10ML ONE (13:20)
[2018-07-15] MEDS ORDERED: SODIUM BICARBONATE 4% (2.4MEQ) 5ML VIAL IV ONE (13:20)
[2018-07-15] MEDS ORDERED: FENTANYL CITRATE/PF 50MCG/ML 2ML VIAL ONE (13:24)
[2018-07-15] MEDS ORDERED: IOHEXOL-300 100 ML BOTTLE ONE (13:30)
[2018-07-15] MEDS ORDERED: HEPARIN 1000 UNITS/ML 10ML IV ONE (14:30)
[2018-07-15] MEDS ORDERED: HEPARIN 5000 UNITS/ML VIAL IV ONE (14:30)
[2018-07-15] MEDS ORDERED: FENTANYL CITRATE/PF 50MCG/ML 2ML VIAL IV ONE (14:45)
[2018-07-15] MEDS ORDERED: ACETAMINOPHEN 325MG TABLET PO PRN (15:00)
[2018-07-15] MEDS ORDERED: IPRATROPIUM/ALBUTEROL 0.5-3(2.5)MG/3ML NEB INH PRN (15:00)
[2018-07-15] MEDS ORDERED: CLONIDINE 0.1MG TABLET PO PRN (15:00)
[2018-07-15] MEDS ORDERED: HYDRALAZINE HCL 50MG TABLET PO NR ×2 (17:30→22:32)
[2018-07-15] MEDS ORDERED: NIFEDIPINE XL 60MG TAB PO NR (17:30)
[2018-07-15] MEDS: HYDROCODONE/ACETAMINOPHEN 5/325MG TABLET PO PRN (18:12)
[2018-07-15] MEDS: ONDANSETRON HCL 4MG/2ML INJ IV PRN (20:14)
[2018-07-15] MEDS ORDERED: SODIUM POLYSTYRENE SULFONATE 15 G/60 ML BOT PO NR (23:00)
[2018-07-15] MEDS ORDERED: SODIUM BICARBONATE 8.4% 1 MEQ/ML 50ML SYR IV NR (23:29)
[2018-07-15] MEDS ORDERED: INSULIN REGULAR (HUMULIN R) 300UNITS/3ML IV NR (23:29)
[2018-07-15] MEDS ORDERED: DEXTROSE 50% WATER 50ML SYRINGE IV STA (23:29)
[2018-07-16] VITALS (7 sets, daily range): BP systolic 134–176; BP diastolic 60–79
[2018-07-16] MEDS: HYDRALAZINE HCL 50MG TABLET PO SCH ×4 (06:00→21:40)
[2018-07-16] MEDS: OMEPRAZOLE 20MG CAPSULE EXTENDED RELEASE PO SCH (06:38)
[2018-07-16 08:18] LABS: BASOPHILS % 0.8 % (0.0-2.0); EOSINOPHILS % 2.9 % (0.0-5.0); HEMATOCRIT. 32.6 % (36.0-48.0); HEMOGLOBIN. 10.3 g/dL (12.0-16.0); LYMPHOCYTES % 10.7 % (20.0-50.0); MEAN CORPUSCULAR HEMOGLOBIN 28.5 pg (28.0-32.0); MEAN CORPUSCULAR VOLUME 90.2 fL (81.0-99.0); MEAN PLATELET VOLUME 8.7 fl (7.4-10.4); MONOCYTES % 6.9 % (2.0-8.0); NEUTROPHILS % 78.7 % (40.0-76.0); PLATELET 110 x1000/uL (130-400); RED BLOOD CELL COUNT 3.61 mill/uL (4.2-5.4); RED CELL DISTRIBUTION WIDTH 17.5 % (11.6-14.6)
[2018-07-16] MEDS: HEPARIN 5000 UNITS/ML VIAL SUBCUT SCH ×2 (08:48→20:06)
[2018-07-16] MEDS ORDERED: NIFEDIPINE XL 60MG TAB PO SCH (09:00)
[2018-07-16] MEDS: ONDANSETRON HCL 4MG/2ML INJ IV PRN (13:36)
[2018-07-16] MEDS: NIFEDIPINE XL 60MG TAB PO SCH (20:05)
[2018-07-16] MEDS ORDERED: ATORVASTATIN CALCIUM 10MG TABLET PO SCH (21:00)
[2018-07-17] VITALS: BP 148/59
[2018-07-17] MEDS: HYDROCODONE/ACETAMINOPHEN 5/325MG TABLET PO PRN (03:07)
[2018-07-17 04:00] VITALS: BP 138/59
[2018-07-17] MEDS: HYDRALAZINE HCL 50MG TABLET PO SCH (05:53)
[2018-07-17] MEDS: OMEPRAZOLE 20MG CAPSULE EXTENDED RELEASE PO SCH (06:31)
[2018-07-17 07:24] LABS: BASOPHILS % 0.6 % (0.0-2.0); EOSINOPHILS % 3.6 % (0.0-5.0); HEMATOCRIT. 35.4 % (36.0-48.0); HEMOGLOBIN. 11.2 g/dL (12.0-16.0); LYMPHOCYTES % 11.6 % (20.0-50.0); MEAN CORPUSCULAR HEMOGLOBIN 28.6 pg (28.0-32.0); MEAN CORPUSCULAR VOLUME 90.5 fL (81.0-99.0); MEAN PLATELET VOLUME 8.7 fl (7.4-10.4); MONOCYTES % 6.3 % (2.0-8.0); NEUTROPHILS % 77.9 % (40.0-76.0); PLATELET 90 x1000/uL (130-400); RED BLOOD CELL COUNT 3.92 mill/uL (4.2-5.4); RED CELL DISTRIBUTION WIDTH 17.8 % (11.6-14.6)
[2018-07-17] MEDS ORDERED: NEBIVOLOL HCL 5 MG TABLET PO SCH (09:00)
[2018-07-17] MEDS: HEPARIN 5000 UNITS/ML VIAL SUBCUT SCH (09:00)
[2018-07-17] MEDS: NIFEDIPINE XL 60MG TAB PO SCH (10:09)
[2018-07-17 11:35] VITALS: BP 150/75
== END 2018-07-17 12:50 | disposition home or self-care (01) | DRG 252 ==
LOC: ER 12:07 → 6WST 13:42 → EDBEDREQ 13:46 → EDBEDREQTM 13:46 → ENRESERV 22:12
PROVIDERS: ADMIT Internal Medicine; ATTEND Internal Medicine
PROC: 05CY3ZZ Extirpation of Matter from Upper Vein, Percutaneous Approach (ICD-10-PCS; principal; 2018-07-15)
PROC: 03CY3ZZ Extirpation of Matter from Upper Artery, Percutaneous Approach (ICD-10-PCS; 2018-07-15)
PROC: 057Y3ZZ Dilation of Upper Vein, Percutaneous Approach (ICD-10-PCS; 2018-07-15)
PROC: 037Y3ZZ Dilation of Upper Artery, Percutaneous Approach (ICD-10-PCS; 2018-07-15)
PROC: B51W1ZZ Fluoroscopy of Dialysis Shunt/Fistula using Low Osmolar Contrast (ICD-10-PCS; 2018-07-15)
PROC: B5181ZZ Fluoroscopy of Superior Vena Cava using Low Osmolar Contrast (ICD-10-PCS; 2018-07-15)
PROC: B51N1ZZ Fluoroscopy of Left Upper Extremity Veins using Low Osmolar Contrast (ICD-10-PCS; 2018-07-15)
PROC: B31J1ZZ Fluoroscopy of Left Upper Extremity Arteries using Low Osmolar Contrast (ICD-10-PCS; 2018-07-15)
PROC: 5A1D70Z Performance of Urinary Filtration, Intermittent, Less than 6 Hours Per Day (ICD-10-PCS; 2018-07-15)
DX: T82.868A Thrombosis due to vascular prosthetic devices, implants and grafts, initial encounter (principal); N18.6 End stage renal disease; I13.2 Hypertensive heart and chronic kidney disease with heart failure and with stage 5 chronic kidney disease, or end stage renal disease; I42.9 Cardiomyopathy, unspecified; E87.5 Hyperkalemia; F17.200 Nicotine dependence, unspecified, uncomplicated; I25.10 Atherosclerotic heart disease of native coronary artery without angina pectoris; D63.1 Anemia in chronic kidney disease; I27.20 Pulmonary hypertension, unspecified; I50.9 Heart failure, unspecified; Y83.8 Other surgical procedures as the cause of abnormal reaction of the patient, or of later complication, without mention of misadventure at the time of the procedure; Y92.89 Other specified places as the place of occurrence of the external cause; Z99.2 Dependence on renal dialysis; Z88.8 Allergy status to other drugs, medicaments and biological substances; Z79.899 Other long term (current) drug therapy; Z82.49 Family history of ischemic heart disease and other diseases of the circulatory system
CPT/HCPCS: 36415; 36905; 71045; 80048; 82962; 83735; 93005; 96365; 96375; 99152; 99153; 99285; C1725; C1766; C1769; C2630; J0360; J0690; J1644; J2405; J3010; J3490; J7050; Q9967; G0500

== ENCOUNTER 2018-09-16 15:02 | Emergency (ER) | payer MEDICARE, MEDICAID ==
[~2018-09-16] VITALS: Ht 170.2 cm; Wt 91.0 kg
[2018-09-16 15:35] VITALS: BP 194/88
== END 2018-09-16 20:34 | disposition left against medical advice (07) ==
LOC: ER 15:02
DX: Z53.21 Procedure and treatment not carried out due to patient leaving prior to being seen by health care provider (principal); R07.89 Other chest pain
CPT/HCPCS: 93005

== ENCOUNTER 2024-01-08 13:24 | Emergency (ER) | payer MEDICARE, MEDICAID ==
[~2024-01-08] VITALS: Ht 172.7 cm; Wt 91.0 kg
[~2024-01-08 13:24] MED LIST changes: -ASPI-1159 PO; +ASPI-1497 PO; -HYDR-4134 PO; +HYDR25TA78 PO; +NEBI5TAB2 PO; -NEBI5TAB3 PO; -OMEP20TA2 PO; +OMEP20TA23 PO
[2024-01-08 13:28] VITALS: O2SAT 95
[2024-01-08 14:17] LABS: POTASSIUM 4.2 mEq/L (3.5-5.1)
[2024-01-08 14:19] LABS: CALCIUM 9.5 mg/dL (8.7-10.4)
[2024-01-08 14:51] LABS: BASOPHILS % 1.9 % (0.0-2.0); EOSINOPHILS % 2.2 % (0.0-5.0); HEMATOCRIT. 35.1 % (36.0-48.0); HEMOGLOBIN. 11.2 g/dL (12.0-16.0); LYMPHOCYTES % 19.7 % (20.0-50.0); MEAN CORPUSCULAR HEMOGLOBIN 28.4 pg (28.0-32.0); MEAN CORPUSCULAR HGB CONC 31.8 g/dL (31.0-37.0); MEAN CORPUSCULAR VOLUME 89.2 fL (81.0-99.0); MEAN PLATELET VOLUME 8.6 fl (7.4-10.4); MONOCYTES % 6.1 % (2.0-8.0); NEUTROPHILS % 70.1 % (40.0-76.0); RED BLOOD CELL COUNT 3.93 mill/uL (4.2-5.4); RED CELL DISTRIBUTION WIDTH 17.4 % (11.6-14.6); WHITE BLOOD COUNT 4.1 x1000/uL (4.5-11.0)
[2024-01-08 14:52] LABS: PLATELET 58 x1000/uL (130-400)
[2024-01-08 15:04] LABS: CREATININE 5.6 mg/dL (0.6-1.0)
[2024-01-08 16:53] LABS: INR 1.3; PROTHROMBIN TIME 13.9 sec (9.6-11.0)
[2024-01-08 21:16] VITALS: BP 137/70; PULSE 80; RESP 16; TEMP 97.8
== END 2024-01-08 21:18 | disposition home or self-care (01) ==
LOC: ER 13:24
DX: K74.60 Unspecified cirrhosis of liver (principal); R14.0 Abdominal distension (gaseous); I12.0 Hypertensive chronic kidney disease with stage 5 chronic kidney disease or end stage renal disease; N18.6 End stage renal disease; Z99.2 Dependence on renal dialysis; Z95.0 Presence of cardiac pacemaker; Z79.899 Other long term (current) drug therapy
CPT/HCPCS: 36415; 49083; 80048; 85025; 99284; 99285